=== PATIENT | female | born 1945 | race Caucasian/White ===

== ENCOUNTER 2016-05-29 09:09 | Emergency (ER) | payer MEDICARE, OTHER ==
[2016-05-29 09:52] LABS: BASOPHIL 0.6 % (0-2); HGB 14.7 g/dl (12.5-16.0); LYMPHOCYTE 16.7 % (15-48); MCH 29.5 pg (25.0-31.0); MCHC 32.7 g/dL (32.0-36.0); MCV 90.4 fL (78.0-100.0); MONOCYTE 9.5 % (0-12); NEUTROPHIL 66.2 % (41-80); PLT 256 K/uL (150-400); RBC 4.98 M/uL (4.20-5.40); RDW 14.8 % (11.5-14.0); WBC 10.4 K/uL (4.0-10.5)
[2016-05-29 10:00] LABS: ALBUMIN 4.5 g/dL (3.4-4.8); BILIRUBIN - TOTAL 0.7 mg/dL (0.1-1.0); CREATININE 0.6 mg/dL (0.5-1.0); GLOBULIN (CALCULATION) 3.1 g/dL (2.2-4.2); POTASSIUM 4.5 mmol/L (3.5-5.1); TOTAL PROTEIN 7.6 g/dL (6.4-8.3)
== END 2016-05-29 11:33 | disposition home or self-care (01) ==
LOC: FER 09:09
PROVIDERS: Emergency Medicine
DX: J44.1 Chronic obstructive pulmonary disease with (acute) exacerbation (principal); I10 Essential (primary) hypertension; E78.5 Hyperlipidemia, unspecified; Z87.891 Personal history of nicotine dependence; Z88.1 Allergy status to other antibiotic agents
CPT/HCPCS: 36415; 36600; 71020; 80053; 82803; 85025; 93005; J2930

== ENCOUNTER 2020-05-10 11:29 | Inpatient (IN) | payer MEDICARE, OTHER ==
[~2020-05-10 11:29] MED LIST: ASPIRIN EC81 MG PO; AUGMENTIN250 MG PO; BROVANA15 MCG/2 M NEB; BUDESONIDE0.25 MG/2 NEB; CELEXA10 MG PO; COQ-10100 MG MT; DAILY MULTIPLE1 EAC1 MT; KLONOPIN0.5 MG MT; LONHALA MA25 MCG/11 NEB; MEGA RED MT; OS-CAL500 MG PO; PRILOSEC20 MG PO; PROAIR HFA8.5 GM INH; PROBIOTIC1 EAC1 MT; SPIRIVA 18MCG18 MCG IN; TOPROL XL25 MG PO; XOPENEX (00.63 MG/3 NEB; ZOCOR5 MG MT
[2020-05-10 12:38] LABS: BASOPHIL 0.3 % (0-2); EOSINOPHIL 3.7 % (0-7); HCT 35.2 % (37.0-47.0); HGB 11.3 g/dl (12.5-16.0); LYMPHOCYTE 8.8 % (15-48); MCH 31.4 pg (25.0-31.0); MCHC 32.1 g/dL (32.0-36.0); MCV 97.8 fL (78.0-100.0); MONOCYTE 7.8 % (0-12); NEUTROPHIL 78.8 % (41-80); NRBC 0; PLT 323 K/uL (150-400); RDW 12.5 % (11.5-14.0)
[2020-05-10 12:47] LABS: ALBUMIN 3.2 g/dL (3.4-5.0); BILIRUBIN - TOTAL 0.3 mg/dL (0.2-1.0); BUN/CREAT RATIO (CALC) 21.8 RATIO; CREATININE 1.01 mg/dL (0.51-0.95); GLOBULIN (CALCULATION) 3.9 g/dL; TOTAL PROTEIN 7.1 g/dL (6.4-8.2)
[2020-05-10 14:41] LABS: BILIRUBIN NEGATIVE (NEGATIVE); BLOOD TRACE-LYSED Ery/uL (NEGATIVE); CLARITY CLEAR (CLEAR); COLOR YELLOW (YELLOW); GLUCOSE (U) NORMAL (NORMAL); LEUKOCYTES NEGATIVE Leu/uL (NEGATIVE); NITRITE NEGATIVE (NEGATIVE); PROTEIN NEGATIVE (NEGATIVE); UROBILINOGEN 0.2 mg/dL (0.2-1.0)
[2020-05-10 14:47] LABS: BACTERIA TRACE
[2020-05-10] MEDS ORDERED: ZOCOR5 MG PO (18:23)
[2020-05-11 10:35] LABS: BASOPHIL 0.3 % (0-2); HCT 27.8 % (37.0-47.0); LYMPHOCYTE 8.1 % (15-48); MCH 31.5 pg (25.0-31.0); MCHC 32.4 g/dL (32.0-36.0); MCV 97.2 fL (78.0-100.0); MONOCYTE 11.3 % (0-12); MPV 10.6 fL (6.0-9.5); NEUTROPHIL 77.9 % (41-80); NRBC 0; PLT 233 K/uL (150-400); RBC 2.86 M/uL (4.20-5.40); RDW 12.4 % (11.5-14.0); WBC 16.3 K/uL (4.0-10.5)
[2020-05-11 10:55] LABS: BUN/CREAT RATIO (CALC) 18.3 RATIO; CREATININE 0.93 mg/dL (0.51-0.95); POTASSIUM 3.3 mmol/L (3.5-5.1)
[2020-05-12 07:31] LABS: BASOPHIL 0.2 % (0-2); EOSINOPHIL 0.9 % (0-7); HCT 29.6 % (37.0-47.0); HGB 9.5 g/dl (12.5-16.0); LYMPHOCYTE 6.8 % (15-48); MCHC 32.1 g/dL (32.0-36.0); MCV 96.7 fL (78.0-100.0); MONOCYTE 9.3 % (0-12); MPV 10.7 fL (6.0-9.5); NEUTROPHIL 82.1 % (41-80); NRBC 0; PLT 243 K/uL (150-400); RBC 3.06 M/uL (4.20-5.40); RDW 12.4 % (11.5-14.0); WBC 17.6 K/uL (4.0-10.5)
[2020-05-12 07:52] LABS: BUN/CREAT RATIO (CALC) 13.3 RATIO; CREATININE 0.75 mg/dL (0.51-0.95); POTASSIUM 3.2 mmol/L (3.5-5.1)
--- NOTE | 2020-05-12 17:22 | NUR ---
05/12/20 Ms. Epstein lives with her spouse. She has a rw, transfer w/c, 02 at , [facility],and what she described as a Phills machine that removes 02. A referral was made to [facility] per pt choice, affliation explained. Discharge is anticipated for 05/13.
[2020-05-13 10:51] LABS: ALBUMIN 2.3 g/dL (3.4-5.0); BILIRUBIN - TOTAL 0.2 mg/dL (0.2-1.0); BUN/CREAT RATIO (CALC) 8.1 RATIO; CREATININE 0.74 mg/dL (0.51-0.95); GLOBULIN (CALCULATION) 2.8 g/dL; MAGNESIUM 1.4 mg/dL (1.8-2.4); POTASSIUM 2.9 mmol/L (3.5-5.1)
[2020-05-13 10:53] LABS: HCT 27.1 % (37.0-47.0); HGB 8.6 g/dl (12.5-16.0); MCH 30.9 pg (25.0-31.0); MCHC 31.7 g/dL (32.0-36.0); MCV 97.5 fL (78.0-100.0); RBC 2.78 M/uL (4.20-5.40); RDW 12.4 % (11.5-14.0); WBC 14.2 K/uL (4.0-10.5)
[2020-05-13 10:53] LABS: TOTAL PROTEIN 5.1 g/dL (6.4-8.2)
[2020-05-13] MEDS ORDERED: HCTZ25 MG PO (11:17)
[2020-05-13] MEDS ORDERED: FERROUS SULFAT325 MG PO (11:18)
[2020-05-13] MEDS ORDERED: YUPELRI175 MCG/3 INH (11:20)
[2020-05-13] MEDS ORDERED: KLONOPIN1 MG PO (11:20)
[2020-05-13] MEDS ORDERED: XOPENEX (11.25 MG/3 INH (11:22)
[2020-05-13] MEDS ORDERED: CARAFATE1 GM PO (11:23)
[2020-05-13] MEDS ORDERED: AZITHROMYCIN250 MG PO (11:23)
[2020-05-13] MEDS ORDERED: TOVIAZ8 MG PO (11:24)
[2020-05-13] MEDS ORDERED: PRINIVIL10 MG PO (11:25)
[2020-05-13] MEDS ORDERED: DALIRESP500 MCG PO (11:26)
[2020-05-13] MEDS ORDERED: MUPIROCIN 2%22 GM TOP (11:27)
[2020-05-13] MEDS ORDERED: HYDROCODONE-CH473 ML PO (11:28)
[2020-05-13] MEDS ORDERED: PROAIR DIGIHAL90 MCG INH (11:30)
[2020-05-13] MEDS ORDERED: CALTRATE 600 +1 EAC1 PO (11:32)
[2020-05-13] MEDS ORDERED: KRILL OIL 3001 EACH PO (11:32)
[2020-05-13 12:12] LABS: IRON % SATURATION 18.1 %SAT (20-50)
[2020-05-13 12:17] LABS: RETICULOCYTE COUNT 1.5 % (1.0-2.0)
[2020-05-13 12:56] LABS: FOLIC ACID (SERUM) 49.4 ng/mL (8.6-58.9); PHOSPHORUS 2.5 mg/dL (2.6-4.7)
--- NOTE | 2020-05-14 03:49 | NUR ---
05/14/20 0140 RN AND PREPRESS SPECIALIST ENTERED ROOM DUE TO BED ALARM ACTIVATING. PT WAS ATTEMPTING TO SIT UP IN BED AND STATED "I CAN'T BREATH". PT O2 TUBING WAS TORN UPON ASSESSMENT. NEW NASAL CANUALA WAS OBTAINED AND A SAT OF 85%. PT PLACED ON 4L TO REACH AN O2 SAT OF 92%. RN AND PREPRESS SPECIALIST ATTMEPTED TO REPOSITION PT ON BACK TO BENEFIT BREATHNG BUT PT REFUSED TO STAY ON BACK AND RETURNED TO RIGHT SIDE. RN ASSESSED RIGHT EYE DUE TO MARKED EDEMA. UPON FURTHER ASSESMENT ALL OF RIGHT SIDE FOUND TO HAVE 3+ EDEMA. RESIDENTIAL HOUSEKEEPER NOTIFIED OF CHANGE IN LEVEL OF CONSIOUSNESS FROM RN'S PREVIOUS ENCOUNTERS WITH PT. RESIDENTIAL HOUSEKEEPER ASSESSED PT AND ORDERED CHEST XRAY AND ABG. RESPIRATORY NOTIFIED RESIDENTIAL HOUSEKEEPER OF ABG RESULTS AND RECOMMENDED BIPAP. RESIDENTIAL HOUSEKEEPER ORDERED AND RN GAVE ATIVAN AND LASIX. CRUZ CATH AND TELE MONITOR ORDERED AND APPLIED TO PT. ORDER WAS GIVEN TO TRANSFER TO ICU DUE TO POSSIBILITY OF INTABATION IF BIPAP FAILED. PT FIGHTING BIPAP FROM TIME APPLIED TO TRANFER CAUSING LEAKING AROUND MASK.
[2020-05-14 08:13] LABS: BASOPHIL 0.2 % (0-2); EOSINOPHIL 0.5 % (0-7); HCT 30.6 % (37.0-47.0); HGB 9.5 g/dl (12.5-16.0); LYMPHOCYTE 7.7 % (15-48); MCH 30.4 pg (25.0-31.0); MCV 98.1 fL (78.0-100.0); MONOCYTE 10.1 % (0-12); MPV 10.9 fL (6.0-9.5); NEUTROPHIL 80.3 % (41-80); NRBC 0; PLT 287 K/uL (150-400); RBC 3.12 M/uL (4.20-5.40); RDW 12.5 % (11.5-14.0); WBC 16.2 K/uL (4.0-10.5)
--- NOTE | 2020-05-14 09:00 | NUR ---
PATIENT REMOVED FROM BIPAP, ORAL CARE AND REPOSITIONING DONE. PATIENT TRACKED WITH EYES, COMMUNICATED WITH STAFF, FOLLOWED SIMPLE INSTRUCTIONS. PATIENT BEGAN TO BECOME MORE RESTLESS, STARTED MOANING AND YELLING, STATED SHE HAD TO PEE REPETITIVELY. CRUZ FLUSHED, DRAINAGE NOTED, BLADDER CAN REVEALED 68ML IN BLADDER, CRUZ DRAINAGE SYSTEM REPOSITIONED. PATIENT BECAME MORE AGITATED, FACE FLUSHED, CLAMMY ON HEAD AND CHEST. HAD A GLAZED STARE AND STOPPED COMMUNICATING WITH STAFF, STIFFENING OF NECK NOTED. SATS DROPPED TO 79%, HR 105. AND RT CALLED TO BEDSIDE. BIPAP REAPPLIED, ABG COMPLETED, PAIN MEDICATION ORDERED, WILL CONTINUE TO MONITOR.
[2020-05-14 11:45] LABS: BUN/CREAT RATIO (CALC) 5.9 RATIO; CREATININE 0.85 mg/dL (0.51-0.95); POTASSIUM 4.1 mmol/L (3.5-5.1)
[2020-05-14 11:48] LABS: MAGNESIUM 2.5 mg/dL (1.8-2.4)
[2020-05-14 14:00] LABS: BILIRUBIN NEGATIVE (NEGATIVE); BLOOD 3+ Ery/uL (NEGATIVE); CLARITY CLEAR (CLEAR); COLOR YELLOW (YELLOW); GLUCOSE (U) NORMAL (NORMAL); LEUKOCYTES NEGATIVE Leu/uL (NEGATIVE); NITRITE NEGATIVE (NEGATIVE); PROTEIN TRACE (LOW) mg/dL (NEGATIVE); UROBILINOGEN 0.2 mg/dL (0.2-1.0); pH 5.5 (5.0-9.0)
[2020-05-14 14:10] LABS: SQUAMOUS EPITHELIAL CELLS RARE
--- NOTE | 2020-05-14 16:46 | NUR ---
1605 PT HAD A PICC LINE ORDERED. CONSENT WAS SIGNED PER SPOUSE. PT ALLERGIC TO DOXYCYCLINE AND CIPRO. PT WAS PLACED IN THE SUPINE POSITION AND THE LEFT ARM WAS POSITIONED OUT TO HER SIDE, PALM UP. HER ARM WAS CLEANSED WITH CHLORAPREP AND DRAPED IN STERILE MANNER. THE US MACHINE WAS USED TO LOCATE THE LEFT UPPER ARM BASILIC VEIN, THE AREA WAS ANESTHETIZED WITH 1% LIDOCAINE, A #21 GUIDE NEEDLE WAS USED TO CANNULATE THE VEIN WITH GOOD BLOOD RETURN, THE GUIDE WIRE WOULD NOT THREAD INTO THE BASILIC VEIN PAST 4-5 CM. THE GUIDE NEEDLE WAS PULLED AND ANOTHER AREA WAS LOCATED WITH THE US MACHINE, THE AREA WAS AGAIN NUMBED AND A #21 G GUIDE NEEDLE WAS INSERTED WITH BLOOD RETURN BUT WAS UNABLE TO THREAD THE GUIDE WIRE. THIS WAS ATTEMPTED IN THE SAME MANNER IN THE PT'S RIGHT UPPER ARM WITHOUT SUCCESS X 3 TIMES. REPORT WAS GIVEN TO VALE ESPARZA R.N. AND ALSO . PT TOLERATED THE PROCEDURE WELL.
[2020-05-15 03:35] LABS: BASOPHIL 0.4 % (0-2); EOSINOPHIL 1.6 % (0-7); HCT 29.7 % (37.0-47.0); HGB 9.3 g/dl (12.5-16.0); LYMPHOCYTE 8.8 % (15-48); MCH 30.7 pg (25.0-31.0); MCHC 31.3 g/dL (32.0-36.0); MONOCYTE 10.8 % (0-12); MPV 10.8 fL (6.0-9.5); NEUTROPHIL 77.2 % (41-80); NRBC 0; PLT 312 K/uL (150-400); RBC 3.03 M/uL (4.20-5.40); RDW 12.9 % (11.5-14.0)
[2020-05-15 03:46] LABS: INR 1.11 (0.9-1.2); PROTHROMBIN TIME 13.6 SECONDS (11.4-13.6); PTT 36.6 SECONDS (22.2-34.7)
[2020-05-15 03:51] LABS: BAND 4 % (0-10); LYMPHOCYTE(M) 12 % (15-48); MONOCYTE(M) 9 % (0-12); NEUTROPHILS(M) 75 % (41-80); PLATELET ESTIMATE NORMAL; PLATELET MORPHOLOGY NORMAL; TOTAL CELL COUNT 100
[2020-05-15 04:03] LABS: PRO-BNP 1536 pg/mL (<125)
[2020-05-15 04:34] LABS: ALBUMIN 2.4 g/dL (3.4-5.0); BILIRUBIN - TOTAL 0.2 mg/dL (0.2-1.0); BUN/CREAT RATIO (CALC) 10.3 RATIO; CREATININE 0.97 mg/dL (0.51-0.95); GLOBULIN (CALCULATION) 3.7 g/dL; PHOSPHORUS 3.3 mg/dL (2.6-4.7); POTASSIUM 4.2 mmol/L (3.5-5.1); TOTAL PROTEIN 6.1 g/dL (6.4-8.2)
[2020-05-15 18:28] LABS: BASOPHIL 0.5 % (0-2); EOSINOPHIL 0.4 % (0-7); HCT 31.7 % (37.0-47.0); LYMPHOCYTE 8.5 % (15-48); MCH 31.5 pg (25.0-31.0); MCHC 31.5 g/dL (32.0-36.0); MONOCYTE 8.9 % (0-12); MPV 10.7 fL (6.0-9.5); NEUTROPHIL 78.8 % (41-80); NRBC 0.1; PLT 344 K/uL (150-400); RBC 3.17 M/uL (4.20-5.40); RDW 12.9 % (11.5-14.0)
[2020-05-15 18:29] LABS: WBC 23.9 K/uL (4.0-10.5)
[2020-05-15 18:44] LABS: ALBUMIN 2.5 g/dL (3.4-5.0); BILIRUBIN - TOTAL 0.3 mg/dL (0.2-1.0); BUN/CREAT RATIO (CALC) 19.4 RATIO; CREATININE 1.03 mg/dL (0.51-0.95); GLOBULIN (CALCULATION) 3.9 g/dL; MAGNESIUM 2.2 mg/dL (1.8-2.4); PHOSPHORUS 4.2 mg/dL (2.6-4.7); POTASSIUM 4.5 mmol/L (3.5-5.1); TOTAL PROTEIN 6.4 g/dL (6.4-8.2)
[2020-05-16 04:05] LABS: BASOPHIL 0.4 % (0-2); EOSINOPHIL 0.1 % (0-7); HCT 29.5 % (37.0-47.0); HGB 9.1 g/dl (12.5-16.0); MCH 30.7 pg (25.0-31.0); MCHC 30.8 g/dL (32.0-36.0); MCV 99.7 fL (78.0-100.0); MONOCYTE 10.3 % (0-12); MPV 10.5 fL (6.0-9.5); NEUTROPHIL 75.9 % (41-80); NRBC 0; PLT 314 K/uL (150-400); RBC 2.96 M/uL (4.20-5.40); RDW 13.2 % (11.5-14.0); WBC 20.5 K/uL (4.0-10.5)
[2020-05-16 04:34] LABS: BUN/CREAT RATIO (CALC) 24.3 RATIO; CREATININE 1.03 mg/dL (0.51-0.95); MAGNESIUM 2.2 mg/dL (1.8-2.4); PHOSPHORUS 3.1 mg/dL (2.6-4.7); POTASSIUM 4.4 mmol/L (3.5-5.1)
--- NOTE | 2020-05-16 17:37 | NUR ---
PATIENT TRANSPORTED BY EMS TO [facility], NOTIFIED AND CAME BY TO SEE PATIENT BEFORE SHE LEFT. PHONE AND CORD SENT HOME WITH , OTHER BELONGINGS SENT WITH PATIENT. REPORT GIVEN TO DARWIN AT [facility]
== END 2020-05-16 17:35 | disposition other institution (70) | DRG 871 ==
LOC: FER 11:29 → FMS 15:47 → FICU 05-14 02:35
PROVIDERS: Emergency Medicine; Internal Medicine; Student in an Organized Health Care Education/Training Program; ADMIT Internal Medicine
PROC: 02HV33Z Insertion of Infusion Device into Superior Vena Cava, Percutaneous Approach (ICD-10-PCS; principal; 2020-05-15)
DX: A41.9 Sepsis, unspecified organism (principal); I21.4 Non-ST elevation (NSTEMI) myocardial infarction; J96.21 Acute and chronic respiratory failure with hypoxia; J96.22 Acute and chronic respiratory failure with hypercapnia; G93.41 Metabolic encephalopathy; K57.20 Diverticulitis of large intestine with perforation and abscess without bleeding; J44.1 Chronic obstructive pulmonary disease with (acute) exacerbation; J44.9 Chronic obstructive pulmonary disease, unspecified; F32.9 Major depressive disorder, single episode, unspecified; D50.9 Iron deficiency anemia, unspecified; I10 Essential (primary) hypertension; G89.29 Other chronic pain; M54.2 Cervicalgia; M54.9 Dorsalgia, unspecified; G47.33 Obstructive sleep apnea (adult) (pediatric); E78.5 Hyperlipidemia, unspecified; F41.9 Anxiety disorder, unspecified; Z20.822 Contact with and (suspected) exposure to COVID-19; K21.9 Gastro-esophageal reflux disease without esophagitis; Z99.81 Dependence on supplemental oxygen; Z88.1 Allergy status to other antibiotic agents; Z79.82 Long term (current) use of aspirin; Z87.891 Personal history of nicotine dependence
CPT/HCPCS: 36415; 36600; 70450; 70551; 71045; 71260; 80048; 80053; 81001; 82607; 82746; 82803; 83540; 83550; 83605; 83690; 83735; 83880; 84100; 84145; 84439; 84443; 84484; 85025; 85610; 85730; 93005; 94640; 94660; C1751; J1170; J1642; J1650; J1940; J2020; J2060; J2185; J2270; J2405; J2543; J2916; J3360; J3475; J7030; J7040; J7050; J7120; Q9967; U0002